=== PATIENT | female | born 1985 | race Caucasian/White ===

== ENCOUNTER 2016-06-07 18:14 | Emergency (ER) | payer OTHER ==
[~2016-06-07] VITALS: Ht 177.8 cm; Wt 108.0 kg
[~2016-06-07 18:14] MED LIST: PEPTOBISMOL; denies meds & allergies
[2016-06-07 20:05] VITALS: Ht 177.8 cm; Wt 108.0 kg
[2016-06-07 21:44] LABS: ADD UMIC YES; URINE BILIRUBIN (Dip) NEGATIVE (NEGATIVE); URINE BLOOD (Dip) TRACE (NEGATIVE); URINE COLOR LT. YELLOW (YELLOW); URINE GLUCOSE (Dip) NEGATIVE (NEGATIVE); URINE KETONES (Dip) TRACE (NEGATIVE); URINE LEUKOCYTE ESTERASE (Dip) 2+ (NEGATIVE); URINE NITRITE (Dip) NEGATIVE (NEGATIVE); URINE TOTAL PROTEIN (Dip) NEGATIVE (NEGATIVE); URINE UROBILINOGEN (Dip) 0.2 E.U./dL (0.1-1.0)
[2016-06-07 21:54] LABS: BACTERIA,URINE FEW
[2016-06-07 22:13] LABS: BASOPHILS % 0.4 % (0.0-2.0); EOSINOPHILS # 0.1 10^3/ul (0.0-0.5); EOSINOPHILS % 0.7 % (0.0-7.0); HEMATOCRIT 38.1 % (37.0-47.0); HEMOGLOBIN 13.3 g/dl (12.0-16.0); LYMPHOCYTES # 3.3 10^3/ul (0.8-2.9); LYMPHOCYTES % 28.4 % (15.0-51.0); MEAN CORPUSCULAR HEMOGLOBIN 32.6 pg (29.0-33.0); MEAN CORPUSCULAR HGB CONC 34.8 g/dl (32.0-37.0); MEAN CORPUSCULAR VOLUME 93.7 fl (82.0-101.0); MEAN PLATELET VOLUME 9.5 fl (7.4-10.4); MONOCYTE # 0.6 10^3/ul (0.3-0.9); MONOCYTES % 4.9 % (0.0-11.0); NEUTROPHIL # 7.7 10^3/ul (1.6-7.5); NEUTROPHILS % 65.6 % (39.0-77.0); PLATELET COUNT 231 10^3/UL (140-440); RED BLOOD COUNT 4.07 10^6/ul (4.20-5.40); RED CELL DISTRIBUTION WIDTH 12.3 % (11.5-14.5); UNCORRECTED WBC 11.8 10^3/ul (4.8-10.8); WHITE BLOOD COUNT 11.8 10^3/ul (4.8-10.8)
[2016-06-07 22:15] LABS: CONDITION 1
--- NOTE | 2016-06-07 22:16 | RADRPT ---
PROCEDURE: US Pelvis. CLINICAL INDICATION: Vaginal bleeding. . TECHNIQUE: Multiple sonographic images of the pelvis were obtained utilizing a transabdominal and endovaginal technique. COMPARISON: 04/21/2013 FINDINGS: Normal appearance of the gravid uterus. Single live intrauterine with yoke sac visualized . 6 weeks 4 days gestational age by crown-rump length measurement. Positive heart motion wit h heart rate 127 beats per minute. No subchorionic hemorrhage. There is no evidence for free fluid. Nonvisualization of the right ovary.. The left ovary has a normal echotexture and measures 3.3 x 2 .4 x 2.3 cm in size with a 1.8 cm hemorrhagic cyst versus corpus luteal cyst of . No adnexa l masses are noted. IMPRESSION: Single live intrauterine 6 weeks 4 days gestational age by crown-rump length measurement. Positive heart motion 127 beats per minute. No subchorionic hemorrhage. 1.8 cm left ovarian hemorrhagic/corpus luteal cyst of . Nonvisualization of the right ova ry. RPTAT:AAJJ Physician Lexie Date Time Electronically viewed and signed by Physician Lexie on 06/07/2016 22:16 DASIA/
--- NOTE | 2016-06-07 22:38 | ERA ---
ER Documentation Chief Complaint Date/Time DATE: 06/07/16 TIME: 22:31 Chief Complaint pelvic/back pain and vaginal spotting/ 6-8 wks since today. HPI Pleasant 30-year-old female coming in today with vaginal bleeding starting at 1600 today Patient reports home tests positive today. Low pelvic pain described as sharp and cramping, pain radiating to back, and blood on toilet paper with wiping. Patient denies need to use chanel-pad or blood in toilet. Patient denies dysuria, reports nausea, vomiting, dizziness, and lightheadedness. Patient states she does not feel these symptoms at this time. 1 miscarriage Has appointment with [facility] tomorrow. Patient reports history of miscarriage here at [facility] in the waiting room. ROS All systems reviewed and are negative except as per history of present illness. Medications Home Meds Active Scripts Cephalexin* (Keflex*) 500 Mg Capsule, 500 MG PO QID for 7 Days, CAP Prov:OLIVIER,HERSON 06/07/16 Reported Medications [denies meds & allergies] No Conflict Check 03/18/13 [Peptobismol] No Conflict Check 12/02/10 Allergies Allergies: Coded Allergies: No Known Allergy (Verified , 03/18/13) PMhx/Soc History of Surgery: No Anesthesia Reaction: No Hx Neurological Disorder: No Hx Respiratory Disorders: No Hx Cardiac Disorders: Yes Hx Psychiatric Problems: No Hx Miscellaneous Medical Probl: No (MISCARRIAGE 3 YRS AGO.) Hx Alcohol Use: No Hx Substance Use: No Hx Tobacco Use: No Smoking Status: Never smoker Physical Exam Vitals Vital Signs Date Time Temp Pulse Resp B/P Pulse Ox O2 Delivery O2 Flow Rate FiO2 06/08/16 00:10 98.4 76 18 118/72 100 Room Air 06/07/16 20:05 98.8 69 20 118/79 98 Physical Exam Temp 98.4 HR 76 RR 18 B/P 118/72 Sat 100 Const: No acute distress Head: Eyes: Normal Conjunctiva ENT: . Neck: . Resp: Cardio: Regular rate and rhythm, no murmurs, normotensive Abd: Abdomen soft, upper and lower quadrants, positive pelvic tenderness, negative CVA tenderness Skin: Back: No midline or flank tenderness Ext: Neur: Awake and alert Psych: Normal Mood and Affect Result Diagram: 06/07/162154 Results 24 hrs Laboratory Tests Test 06/07/16 21:30 06/07/16 21:55 Urine Bacteria FEW Urine Bilirubin NEGATIVE Urine Clarity CLEAR Urine Color LT. YELLOW Urine Epithelial Cells FEW Urine Glucose NEGATIVE% Urine Hemoglobin TRACE Urine Ketones TRACE Urine Leukocyte Esterase 2+ Urine Microscopic RBC 2-5/HPF Urine Microscopic WBC 5-10/HPF Urine Nitrite NEGATIVE Urine Specific Ephraim >=1.030 Urine Total Protein NEGATIVE Urine Urobilinogen 0.2 E.U./dL Urine pH 5.5 Basophils # 0.010^3/ul Basophils % 0.4% Beta HCG, Quantitative 71816.0mIU/ml Eosinophils # 0.110^3/ul Eosinophils % 0.7% Hematocrit 38.1% Hemoglobin 13.3g/dl Lymphocytes # 3.310^3/ul Lymphocytes % 28.4% Mean Corpuscular Hemoglobin 32.6pg Mean Corpuscular Hemoglobin Concent 34.8g/dl Mean Corpuscular Volume 93.7fl Mean Platelet Volume 9.5fl Monocytes # 0.610^3/ul Monocytes % 4.9% Neutrophils # 7.710^3/ul Neutrophils % 65.6% Nucleated Red Blood Cells # 0.010^3/ul Nucleated Red Blood Cells % 0.0/100WBC Platelet Count 54268^3/UL Red Blood Count 4.0710^6/ul Red Cell Distribution Width 12.3% White Blood Count 11.810^3/ul Abnormal urinalysis, leukocytosis +2, nitrates are negative, RBCs present 2-5 and high-pressure field. Findings are consistent with urinary tract infection. Nurse practitioner plans to treat infection with Keflex. Procedures/MDM PROCEDURE: US Pelvis. CLINICAL INDICATION: Vaginal bleeding. . TECHNIQUE: Multiple sonographic images of the pelvis were obtained utilizing a transabdominal and endovaginal technique. COMPARISON: 04/21/2013 FINDINGS: Normal appearance of the gravid uterus. Single live intrauterine with yoke sac visualized. 6 weeks 4 days gestational age by crown-rump length measurement. Positive heart motion with heart rate 127 beats per minute. No subchorionic hemorrhage. There is no evidence for free fluid. Nonvisualization of the right ovary.. The left ovary has a normal echotexture and measures 3.3 x 2.4 x 2.3 cm in size with a 1.8 cm hemorrhagic cyst versus corpus luteal cyst of . No adnexal masses are noted. IMPRESSION: Single live intrauterine 6 weeks 4 days gestational age by crown-rump length measurement. Positive heart motion 127 beats per minute. No subchorionic hemorrhage. 1.8 cm left ovarian hemorrhagic/corpus luteal cyst of . Nonvisualization of the right ovary. Physician Lexie Date Time Electronically viewed and signed by Physician Lexie on 06/07/2016 22:16 Medical decision making 30-year-old female evaluated by me for vaginal bleeding and positive evidence of , has been confirmed on ultrasound single living intrauterine 6 weeks 4 days gestation with heart rate of 127 bpm. She also has a 1.8 cm left ovarian hemorrhagic corpus luteum cyst of . Patient does have evidence of a urinary tract infection as discussed earlier leukocytes, blood, and elevated WBCs 11.8. Plan to treat patient for urinary tract infection with Keflex 500 mg 4 times daily 7 days. Follow-up with OB/ UTILITY AGENT as planned, tomorrow I feel patient is stable for discharge at this time I have discussed the results examination findings disposition and treatment plan with patient and family prior to discharge, indications for emergent reevaluation and side effects of medication were all discussed. Questions were answered, patient verbalizes understanding and agrees to plan of care. Departure Diagnosis: Primary Impression: Urinary tract infection Qualified Code: N39.0 - Urinary tract infection with hematuria, site unspecified Additional Impression: 6 weeks gestation of Condition: Good Patient Instructions: Adapting to : First Trimester, Understanding Urinary Tract Infections (UTIs) Referrals: Your merchandising execution associate Additional Instructions: Thank you for for coming to [facility] for your care today. Please ask your nurse or provider if you have questions about your care today and do not leave until all your questions have been answered. Please use any medications given as directed and follow-up with your doctor (or the doctor you were referred to) in the next 2-3 days. If you do not have a primary care doctor you may follow up at the [facility] (listed below). You may also use motrin and tylenol as needed for fever and/or pain unless instructed otherwise by your provider or nurse. Indications for more urgent follow-up have been discussed, but you may return to the Emergency Department at ANY time for any worrisome or worsening symptoms. If you have abdominal pain, please know that no test or exam you received is perfect and you should follow up within 8 hours for continued pain. If you had any imaging studies today, such as an X-Ray or CT Scan, these studies will be reviewed later by a radiologist. You will be called if there are important findings that were not identified today, so make sure the contact information you provided at registration is correct. If you received any narcotic pain control medicine today, such as Vicodin, Morphine or Dilaudid, your coordination and judgment may be affected for a number of hours. Please do not drive or operate heavy machinery, and you may want someone to assist you at home. If you were given a prescription for narcotic medication, be aware that it is very addictive- use sparingly and only if necessary. Comments Return to emergency room for any change in symptoms, increased pelvic pain, vaginal bleeding, nausea or vomiting. Copies To: CC: SHEYLA MARLEY MD, MELODY Jun 07, 2016 22:38
[2016-06-07] MEDS ORDERED: CEPH-443 PO (23:05)
[2016-06-08 00:10] VITALS: BP 118/72; PULSE 76; RESP 18; TEMP 98.4
== END 2016-06-08 00:10 | disposition home or self-care (01) ==
LOC: FTE 18:14
DX: O20.9 Hemorrhage in early pregnancy, unspecified (principal); R10.2 Pelvic and perineal pain; Z3A.01 Less than 8 weeks gestation of pregnancy
CPT/HCPCS: 36415; 76801; 76817; 81001; 81003; 84702; 85025; 86900; 86901

== ENCOUNTER 2016-07-07 08:32 | Emergency (ER) | payer SELFPAY ==
[~2016-07-07] VITALS: Wt 100.0 kg
[~2016-07-07 08:32] MED LIST changes: +CEPH-443 PO
[2016-07-07] MEDS ORDERED: ONDANSETRON (ODT) 4 MG TAB ODT STA (10:26)
[2016-07-07] MEDS ORDERED: ACETAMINOPHEN 500 MG TAB PO STA (10:26)
--- NOTE | 2016-07-07 10:49 | ERD ---
ER Documentation Chief Complaint Date/Time DATE: 07/07/16 TIME: 10:44 Chief Complaint abd pain since 0300 today with vomiting. no diarrhea or fevers HPI This is a 30-year-old female who presents to the emergency department today complaining of abdominal pain that started this morning. States she feels nauseated and has a stomachache and feels "dizzy" states that she feels constipated and yesterday she had a normal bowel movement she could not go today. States that she went to the store and took milk of magnesia. She has not taken any other medication for pain. States she is approximately 12 weeks . Denies any vaginal bleeding, fevers or chills ROS All systems reviewed and are negative except as per history of present illness. Medications Home Meds Active Scripts Docusate Sodium* (Colace*) 100 Mg Capsule, 100 MG PO TID, #30 CAP Prov:ELIZA HAYWARD PA-C 07/07/16 Polyethylene Glycol* (Miralax*) 17 Gm Powd.pack, 17 GM PO DAILY, #30 PACKET Prov:ELIZA HAYWARD PA-C 07/07/16 Acetaminophen* (Tylophen*) 500 Mg Capsule, 1 CAP PO Q6H Y for PAIN AND OR ELEVATED TEMP, #30 CAP Prov:ELIZA HAYWARD PA-C 07/07/16 Ondansetron Hcl* (Zofran*) 4 Mg Tablet, 4 MG PO Q6H for NAUSEA AND/OR VOMITING, #30 TAB Prov:ELIZA HAYWARD PA-C 07/07/16 Cephalexin* (Keflex*) 500 Mg Capsule, 500 MG PO QID for 7 Days, CAP Prov:OLIVIER,HERSON 06/07/16 Reported Medications [denies meds & allergies] No Conflict Check 03/18/13 [Peptobismol] No Conflict Check 12/02/10 Allergies Allergies: Coded Allergies: No Known Allergy (Verified , 07/07/16) PMhx/Soc History of Surgery: No Anesthesia Reaction: No Hx Neurological Disorder: No Hx Respiratory Disorders: No Hx Cardiac Disorders: Yes Hx Psychiatric Problems: No Hx Miscellaneous Medical Probl: No (MISCARRIAGE 3 YRS AGO.) Hx Alcohol Use: No Hx Substance Use: No Hx Tobacco Use: No Smoking Status: Never smoker Physical Exam Vitals Vital Signs Date Time Temp Pulse Resp B/P Pulse Ox O2 Delivery O2 Flow Rate FiO2 07/07/16 08:36 98.6 82 20 122/68 97 Physical Exam Const: Obese, NAD Head: Atraumatic Eyes: Normal Conjunctiva ENT: Normal External Ears, Nose and Mouth. Neck: Full range of motion..~ No meningismus. Resp: Clear to auscultation bilaterally Cardio: Regular rate and rhythm, no murmurs Abd: Soft, periumbilical and lower pelvic pain non distended. Normal bowel sounds. No right lower quadrant tenderness. No tenderness to McBurney's Skin: No petechiae or rashes Back: No midline or flank tenderness Ext: No cyanosis, or edema Neur: Awake and alert Psych: Normal Mood and Affect Result Diagram: 07/07/16 1057 07/07/16 1057 Results 24 hrs Laboratory Tests Test 07/07/16 10:57 07/07/16 11:15 Alanine Aminotransferase (ALT/SGPT) 30IU/L Albumin 3.9g/dl Albumin/Globulin Ratio 1.18 Alkaline Phosphatase 59IU/L Anion Gap 18 Aspartate Amino Transf (AST/SGOT) 20IU/L Basophils # 0.010^3/ul Basophils % 0.2% Blood Urea Nitrogen 10mg/dl Calcium Level 9.5mg/dl Carbon Dioxide Level 24mmol/L Chloride Level 101mmol/L Creatinine 0.47mg/dl Direct Bilirubin 0.00mg/dl Eosinophils # 0.010^3/ul Eosinophils % 0.2% Globulin 3.30g/dl Glucose Level 84mg/dl Hematocrit 35.9% Hemoglobin 12.8g/dl Indirect Bilirubin 0.3mg/dl Lipase 63U/L Lymphocytes # 1.910^3/ul Lymphocytes % 15.1% Mean Corpuscular Hemoglobin 31.8pg Mean Corpuscular Hemoglobin Concent 35.7g/dl Mean Corpuscular Volume 89.3fl Mean Platelet Volume 10.9fl Monocytes # 0.510^3/ul Monocytes % 4.2% Neutrophils # 10.010^3/ul Neutrophils % 80.0% Nucleated Red Blood Cells # 0.010^3/ul Nucleated Red Blood Cells % 0.0/100WBC Platelet Count 55487^3/UL Potassium Level 3.9mmol/L Red Blood Count 4.0210^6/ul Red Cell Distribution Width 11.9% Sodium Level 139mmol/L Total Bilirubin 0.3mg/dl Total Protein 7.2g/dl White Blood Count 12.510^3/ul Urine Bilirubin NEGATIVE Urine Clarity CLEAR Urine Color LT. YELLOW Urine Glucose NEGATIVE% Urine Hemoglobin NEGATIVE Urine Ketones 15 Urine Leukocyte Esterase NEGATIVE Urine Microscopic RBC NONE SEEN/HPF Urine Microscopic WBC 0-2/HPF Urine Nitrite NEGATIVE Urine Specific Moran 1.015 Urine Squamous Epithelial Cells FEW Urine Total Protein TRACE Urine Urobilinogen 0.2 E.U./dL Urine pH >=9.0 Current Medications Medications (Trade) Dose Ordered Sig/Tommy Route PRN Reason Start Time Stop Time Status Last Admin Dose Admin Acetaminophen (Tylenol Tab) 500 mg ONCE STAT PO 07/07/16 10:26 07/07/16 10:29 DC 07/07/16 11:01 Ondansetron HCl (Zofran Odt) 4 mg ONCE STAT ODT 07/07/16 10:26 07/07/16 10:27 Cancel Ondansetron HCl 4 mg 4 mg ONCE STAT IV 07/07/16 10:56 07/07/16 10:58 DC 07/07/16 11:01 Sodium Chloride (NS) 500 ml @ 500 mls/hr Q1H ONCE IV 07/07/16 12:30 07/07/16 13:29 DC 07/07/16 12:19 Procedures/MDM This is a 30-year-old female who presents to the emergency department today complaining of vomiting, stomachache and feeling dizzy that started this morning. Patient states she has been unable to have a bowel movement today. Patient had been seen here on June 07, 2016 for vaginal bleeding in . She had a complete OB workup at that time and had an IUP. Patient denies any vaginal bleeding at this time however today, given the patient's symptoms I did obtain laboratory work as well as a OB ultrasound Laboratory work shows a mildly elevated white blood cell count. Hemoglobin is within normal limits. Platelets are within normal limits. Electrolytes are within normal limits. Liver function is within normal. Lipase is within normal limits. Glucose is within normal limits. UA is negative for infection. Ultrasound shows a single live intrauterine with an estimated gestational age of 10 weeks and 6 days based on ultrasound measurements. Estimated date of delivery is 01/20/2017. There is no free fluid. heart rate is noted at 163. Patient had some periumbilical pain on physical exam however I do not feel the patient requires a CT scan or KUB at this time to rule out acute surgical abdomen or obstruction. Patient has had a bowel movement yesterday and have low suspicion for obstruction. Feel the risks would outweigh the benefits. Patient symptoms at this time consistent with abdominal pain and . May be secondary to constipation. Low suspicion for acute surgical abdomen. Patient denies any vaginal bleeding and have low suspicion for ectopic , tubo-ovarian abscess, ovarian torsion Patient was given Tylenol and Zofran here in the emergency department. She was also given half a liter of fluids and symptoms improved. Patient will begin a prescription for Tylenol, Zofran, Colace and MiraLAX. At this time the patient is stable for discharge and outpatient management. Patient should follow up with their PCP in the next 1-2 days. They may return to the emergency department sooner for any persistent or worsening of symptoms. Patient understood and agreed with the plan. Discussed the patient with Dr. Doss and he is in agreement with the plan. Departure Diagnosis: Primary Impression: Abdominal pain Abdominal location: periumbilical Qualified Code: R10.33 - Periumbilical abdominal pain Condition: Fair ELIZA HAYWARD PA-C Jul 07, 2016 10:49
[2016-07-07] MEDS ORDERED: ONDANSETRON 4 MG INJ IV STA (10:56)
[2016-07-07 11:27] LABS: ADD SCAN DIFF NO
[2016-07-07 11:33] LABS: BASOPHILS % 0.2 % (0.0-2.0); EOSINOPHILS % 0.2 % (0.0-7.0); HEMATOCRIT 35.9 % (37.0-47.0); HEMOGLOBIN 12.8 g/dl (12.0-16.0); LYMPHOCYTES # 1.9 10^3/ul (0.8-2.9); LYMPHOCYTES % 15.1 % (15.0-51.0); MEAN CORPUSCULAR HEMOGLOBIN 31.8 pg (29.0-33.0); MEAN CORPUSCULAR HGB CONC 35.7 g/dl (32.0-37.0); MEAN CORPUSCULAR VOLUME 89.3 fl (82.0-101.0); MEAN PLATELET VOLUME 10.9 fl (7.4-10.4); MONOCYTE # 0.5 10^3/ul (0.3-0.9); MONOCYTES % 4.2 % (0.0-11.0); PLATELET COUNT 245 10^3/UL (140-415); RED BLOOD COUNT 4.02 10^6/ul (4.20-5.40); RED CELL DISTRIBUTION WIDTH 11.9 % (11.5-14.5); WHITE BLOOD COUNT 12.5 10^3/ul (4.8-10.8)
[2016-07-07 11:38] LABS: ADD UMIC YES; URINE BILIRUBIN (Dip) NEGATIVE (NEGATIVE); URINE BLOOD (Dip) NEGATIVE (NEGATIVE); URINE COLOR LT. YELLOW (YELLOW); URINE GLUCOSE (Dip) NEGATIVE (NEGATIVE); URINE KETONES (Dip) 15 (NEGATIVE); URINE LEUKOCYTE ESTERASE (Dip) NEGATIVE (NEGATIVE); URINE NITRITE (Dip) NEGATIVE (NEGATIVE); URINE TOTAL PROTEIN (Dip) TRACE (NEGATIVE); URINE UROBILINOGEN (Dip) 0.2 E.U./dL (0.1-1.0)
[2016-07-07 11:41] LABS: ALBUMIN 3.9 g/dl (3.3-4.9)
[2016-07-07 11:42] LABS: POTASSIUM 3.9 mmol/L (3.5-5.1)
[2016-07-07 11:44] LABS: ALBUMIN/GLOBULIN RATIO 1.18; BILIRUBIN,INDIRECT 0.3 mg/dl (0-1.1); BILIRUBIN,TOTAL 0.3 mg/dl (0.2-1.3); CREATININE 0.47 mg/dl (0.44-1.00); TOTAL PROTEIN 7.2 g/dl (6.1-8.1)
[2016-07-07 11:45] LABS: CALCIUM 9.5 mg/dl (8.4-10.2)
[2016-07-07 11:52] LABS: SQUAMOUS EPITHELIAL CELL,UR FEW; URINE RBCS NONE SEEN /HPF (0)
[2016-07-07] MEDS ORDERED: SOD CHLORIDE 0.9% 500 ML IV ONE (12:30)
[2016-07-07] MEDS ORDERED: ONDA4TAB8 PO (13:39)
[2016-07-07] MEDS ORDERED: ACET500C5 PO (13:41)
[2016-07-07] MEDS ORDERED: POLY17PO6 PO (13:42)
[2016-07-07] MEDS ORDERED: DOCU-144 PO (13:42)
[2016-07-07 14:10] VITALS: BP 118/70; PULSE 78; RESP 18
== END 2016-07-07 14:14 | disposition home or self-care (01) ==
LOC: FTE 08:32
DX: O26.891 Other specified pregnancy related conditions, first trimester (principal); R10.33 Periumbilical pain; R11.0 Nausea; Z3A.10 10 weeks gestation of pregnancy
CPT/HCPCS: 36415; 76801; 80053; 81001; 83690; 85025; 96374; 99285; J2405; J7040; 81003